=== PATIENT | female | born 1945 | race Caucasian/White ===

== ENCOUNTER → 2023-10-02 | Outpatient (CLI) | payer MEDICARE ==
--- NOTE | 2023-10-02 15:09 | MM ---
Reason for Exam: Follow-up at short interval from prior study. Last mammogram was performed 9 year(s) and 1 month(s) ago. Patient History: Menarche at age 15. First Full-Term at age 22. Postmenopausal. Patient has history of breast feeding. 05/13/2013, Benign Ultrasound-Guided Core Biopsy on the right side. 04/08/2015, Benign Core Biopsy on the left side. Mother had breast cancer, age 73. Risk Values: Clara 5 year model risk: 5.0%. NCI Lifetime model risk: 10.0%. Prior Study Comparison: 04/29/2013 Screening Mammogram, [place]. 05/07/2013 Screening Mammogram, [place]. 03/31/2015 Left Diagnostic Mammogram, [facility]. 04/08/2015 Left Diagnostic Mammogram, [facility]. Tissue Density: The breasts are heterogeneously dense, which may obscure small masses. Findings: Analyzed By CAD. The pattern is symmetrical. There is a 0.7 cm nodule with circumscribed margins at the middle portion right breast 4 cm nipple. Appears stable from comparison. There are 2 new oval densities at 3:00 anterior position right breast. Additional evaluation with ultrasound recommended Left breast:No suspicious groups of microcalcifications, spiculated or lobular masses, architectural distortion or other secondary signs of malignancy are mammographically apparent. Overall Assessment: Incomplete: need additional imaging evaluation, BI-RAD 0 Management: Diagnostic Breast Ultrasound of the right breast. A negative mammogram report should not preclude additional follow up of suspicious palpable abnormalities. Patient should continue monthly self breast exam. A clinical breast exam by your physician is recommended on an annual basis and results should be correlated with mammographic findings. Note on Clara scores and lifetime risk: 1. A Clara score greater than 3% is considered moderate risk. If this is the case, consider specialist referral to assess eligibility for a risk reducing agent. 2. If overall lifetime risk for the development of breast cancer is 20% or higher, the patient may qualify for future screening with alternating mammogram and breast MRI. Electronically signed and approved by: Mynor Cadena D.O. Radiologis
--- NOTE | 2023-10-02 19:18 | USB ---
Reason for Exam: Additional evaluation requested from abnormal screening. Patient History: Menarche at age 15. First Full-Term at age 22. Postmenopausal. Patient has history of breast feeding. 05/13/2013, Benign Ultrasound-Guided Core Biopsy on the right side. 04/08/2015, Benign Core Biopsy on the left side. Mother had breast cancer, age 73. Risk Values: Clara 5 year model risk: 5.0%. NCI Lifetime model risk: 10.0%. Technique: Method: Whole Breast Handheld. Prior Study Comparison: 09/22/2014 Left Diagnostic Mammogram, [facility]. 03/31/2015 Left Diagnostic Mammogram, [facility]. 04/08/2015 Left Diagnostic Mammogram, [facility]. Findings: The whole breast of the right breast, the axilla of the right breast and the retroareolar of the right breast were scanned. There are several cysts present within the right breast. At the 12:00 position 5 cm nipple which appears to correspond to the stable appearing nodule on mammogram is a 0.7 x 0.5 x 0.6 cm cyst with good through transmission and posterior wall enhancement. There is nearby adjacent cyst measuring 0.4 cm in diameter. Additional smaller anechoic structures with through-transmission and posterior wall enhancement are present. A complex cystic cluster measuring 0.6 x 0.4 x 0.8 cm is present at the 2:00 position 4 cm from nipple.. Overall Assessment: Benign, BI-RAD 2 Management: Screening Mammogram of both breasts in 1 year. A clinical breast exam by your physician is recommended on an annual basis and results should be correlated with mammographic findings. This exam should not preclude additional follow-up of suspicious palpable abnormalities. Results were given to the patient verbally at the time of exam. Electronically signed and approved by: Mynor Cadena D.O. Radiologis
== END | disposition home or self-care (01) ==
LOC: RADMAMWWP 14:18
PROVIDERS: ATTEND Family Medicine
DX: R92.333 Mammographic heterogeneous density, bilateral breasts (principal); R92.8 Other abnormal and inconclusive findings on diagnostic imaging of breast; Z78.0 Asymptomatic menopausal state; Z80.3 Family history of malignant neoplasm of breast
CPT/HCPCS: 77066; 76641; G0279; 77062

== ENCOUNTER 2023-10-25 11:30 | Day surgery (SDC) | payer MEDICARE ==
[~2023-10-25 11:30] MED LIST: LACTATED RINGERS 1,000 ML BAG ONE; LIDOCAINE 1% INJ 10MG/ML (20 ML MDV) ONE; PROPOFOL 10 MG/ML 20 ML VIAL IV ONE
--- NOTE | 2023-11-15 17:11 | P.PCN ---
Date of Procedure: 10/25/23 Procedure(s) Performed: This an addendum to the procedure was performed on 10/25/2023. Procedure performed colonoscopy with snare polypectomy Procedure: Scope was advanced to the cecum. There was a 5 mm polyp in the ascending colon that was removed by cold snare polypectomy. 5 mm transverse colon polyp and the sigmoid colon both of which were removed by cold snare polypectomy. Patient tolerated procedure well
== END 2023-10-25 12:30 ==
LOC: ORWHC2ENDO 11:30
PROVIDERS: ATTEND Internal Medicine Gastroenterology
DX: Z12.11 Encounter for screening for malignant neoplasm of colon (principal); D12.2 Benign neoplasm of ascending colon; D12.5 Benign neoplasm of sigmoid colon; I10 Essential (primary) hypertension; I25.10 Atherosclerotic heart disease of native coronary artery without angina pectoris; K21.9 Gastro-esophageal reflux disease without esophagitis; Z95.5 Presence of coronary angioplasty implant and graft; Z79.899 Other long term (current) drug therapy; Z85.828 Personal history of other malignant neoplasm of skin; Z91.041 Radiographic dye allergy status; Z79.02 Long term (current) use of antithrombotics/antiplatelets; Z79.82 Long term (current) use of aspirin
CPT/HCPCS: 45385; 88305

== ENCOUNTER 2024-06-01 08:57 | Day surgery (SDC) | payer MEDICARE ==
[2024-06-01 09:33] VITALS: RESP 16; TEMP 97.8
[2024-06-01 10:40] VITALS: BP 136/63; PULSE 49
--- NOTE | 2024-06-01 11:18 | US ---
EXAMINATION TYPE: US FNA thyroid first lesion DATE OF EXAM: 06/01/2024 10:07 AM CLINICAL INDICATION:Female, 79 years old with history of E04.1 NONTOXIC SINGLE THYROID NODULE; , thyr oid nodule. COMPARISON: None. ATTENDING: Dr. Cifuentes PROCEDURE: Informed consent was obtained. The risks and benefits of the procedure were discussed with the patien t. Discussion included possibility of nondiagnostic results. The site was marked. Timeout procedure w as performed Ultrasound imaging demonstrates an approximately 1.1 cm hypoechoic solid nodule wider greater than ta ll mid to lower pole of the left thyroid lobe. TR4 lesion. The patient was prepped, draped in the usual sterile fashion, and locally anesthetized with 1% lidoca ine. Five fine needle aspiration were then performed with a 25 gauge needle. Samples were sent to [facility] pathology department for further analysis. Patient tolerated the procedure without incident and wa s sent home in stable condition. IMPRESSION: Successful ultrasound guided fine needle aspiration. Intermediate index of suspicion. [facility], , 06/01/2024 11:16 AM
== END 2024-06-01 10:15 | disposition home or self-care (01) ==
LOC: RADPROMAIN 08:57
PROVIDERS: ATTEND Family Medicine
DX: E04.1 Nontoxic single thyroid nodule (principal)
CPT/HCPCS: 10005; 88173; 88305